=== PATIENT | female | born 1970 | race Caucasian/White ===

== ENCOUNTER 2016-06-20 20:28 | Emergency (ER) | payer MEDICAID ==
[2016-06-20 21:03] VITALS: BP 100/64; PULSE 68; RESP 16; TEMP 98.6; O2SAT 98; BMI 23.9
[2016-06-20 21:44] LABS: URINE BILIRUBIN NEGATIVE (NEGATIVE); URINE BLOOD NEGATIVE (NEGATIVE); URINE GLUCOSE (UA) NEGATIVE (NEGATIVE); URINE KETONE NEGATIVE (NEGATIVE); URINE LEUKOCYTE ESTERASE NEGATIVE Leu/uL (NEGATIVE); URINE PROTEIN NEGATIVE mg/dL (<30 mg/dL); URINE UROBILINOGEN 0.2 E.U./dL (<1 E.U./dL)
[2016-06-20 21:45] LABS: URINE APPEARANCE SL CLOUDY (CLEAR); URINE COLOR YELLOW (YELLOW)
--- NOTE | 2016-06-20 21:48 | ED PDOC ---
Arrival/HPI - General Chief Complaint: Lower Extremity Problem/Injury Time Seen by Provider: 06/20/16 20:29 Historian: Patient - History of Present Illness Narrative History of Present Illness (Text): 06/20/16 21:48 46 y.o. female whose PMHx includes colitis and SLE, on claudia, who is here in the ED with 4-5 days of L heel pain going up toward the L ankle. She is taking tylenol without relief. No fever or trauma noted. She does not believe she stepped on anything. Past Medical History - Travel History If Yes, travel location?: [facility] [place] - Infectious Disease Hx of Infectious Diseases: None - Tetanus Immunization Tetanus Immunization: Unknown - Cardiac Hx Cardiac Disorders: No - Pulmonary Hx Respiratory Disorders: No - Neurological Hx Neurological Disorder: No - HEENT Hx HEENT Disorder: No - Renal Hx Renal Disorder: No - Endocrine/Metabolic Hx Endocrine Disorders: Yes Hx Systemic Lupus Erythematosus: Yes - Hematological/Oncological Hx Blood Disorders: No - Integumentary Hx Dermatological Disorder: No - Musculoskeletal/Rheumatological Hx Musculoskeletal Disorders: No - Gastrointestinal Hx Gastrointestinal Disorders: Yes Hx Colitis: Yes - Genitourinary/Gynecological Hx Genitourinary Disorders: No - Psychiatric Hx Psychophysiologic Disorder: No Hx Substance Use: No - Surgical History Hx Cholecystectomy: Yes Hx Tubal Ligation: Yes Other/Comment: hemorrhoid repair - Suicidal Assessment Feels Threatened In Home Enviroment: No Family/Social History Family/Social History: Unknown Family HX Smoking Status: Never Smoked Hx Alcohol Use: Yes Frequency of alcohol use: Socially Hx Substance Use: No Hx Substance Use Treatment: No Allergies/Home Meds Allergies/Adverse Reactions: Allergies apple Allergy (Verified 08/23/15 21:52) ANAPHYLAXIS mcmullen Allergy (Verified 08/23/15 21:52) ANAPHYLAXIS pear Allergy (Verified 08/23/15 21:52) ANAPHYLAXIS pineapple Allergy (Verified 08/23/15 21:52) ANAPHYLAXIS tramadol Allergy (Verified 06/20/16 21:36) ANAPHYLAXIS fruits Allergy (Uncoded 08/23/15 21:52) ANAPHYLAXIS Home Medications: Home Meds Medication Instructions Recorded Confirmed Mesalamine [Apriso] 0.375 gm PO DAILY 05/23/13 08/23/15 Review of Systems - Review of Systems Constitutional: absent: Fevers Musculoskeletal: Other (L heel / ankle pain) Physical Exam Vital Signs Temp Pulse Resp BP Pulse Ox 06/20/16 21:03 98.6 F 68 16 100/64 98 Temperature: Afebrile Blood Pressure: Normal Pulse: Regular Respiratory Rate: Normal Appearance: Positive for: Well-Appearing, Non-Toxic, Comfortable Pain Distress: None Mental Status: Positive for: Alert and Oriented X 3 - Systems Exam Head: Present: Atraumatic, Normocephalic Lower Extremity: Present: Normal Inspection, NORMAL PULSES, Normal ROM, Tenderness (ttp on the bottom of the L heel), Neurovascularly Intact. No: Edema , CALF TENDERNESS, Cyanosis, Swelling, Erythema, Deformity Medical Decision Making ED Course and Treatment: 06/20/16 21:51 Patient with L heel pain going toward the L ankle with ttp at the heel with otherwise benign exam. 06/20/16 21:51 Will obtain XR. 06/20/16 21:54 XR: no fx. 06/20/16 21:59 Patient cannot take nsaids due to colitis and cannot tolerate tramadol. Given SLE, she prefers to avoid steroids - will have her use ice, shock support for plantar fasciitis, T3, and f/u podiatry. - RAD Interpretation Radiology Orders: 06/20/16 21:17 FOOT LEFT 3 VIEWS ROUTINE [RAD] Stat 06/20/16 21:18 ANKLE LEFT 3 VIEWS ROUTINE [RAD] Stat - Medication Orders Current Medication Orders: Discontinued Medications Ibuprofen (Motrin Tab) 600 mg PO STAT STA Stop: 06/20/16 21:18 Last Admin: 06/20/16 21:36 Dose: Not Given Non-Admin Reason: Patient Refused Tramadol HCl (Ultram) 50 mg PO STAT STA Stop: 06/20/16 21:18 Last Admin: 06/20/16 21:36 Dose: Not Given Non-Admin Reason: Patient Refused Disposition/Present on Arrival - Present on Arrival Any Indicators Present on Arrival: No History of DVT/PE: No History of Uncontrolled Diabetes: No Urinary Catheter: No History of Decub. Ulcer: No History Surgical Site Infection Following: None - Disposition Have Diagnosis and Disposition been Completed?: Yes Diagnosis: Left foot pain Disposition: HOME/ ROUTINE Disposition Time: 22:00 Patient Plan: Discharge Condition: GOOD Discharge Instructions (ExitCare): Plantar Fasciitis (ED) Additional Instructions: Apply ice to area of pain. Recommend plantar fasciitis support/splint. Tylenol #3 for pain and follow up with your fabrics and material cutter. Return to the emergency department if any new concerning symptoms. Prescriptions: Acetaminophen with Codeine [Tylenol with Codeine #3 Tablet] 1 tab PO Q6H PRN # 12 tablet PRN Reason: Pain, Moderate (4-7) Referrals: Mary Pearl MD [Primary Care Provider] - Follow up with primary Chelsey Farias DPM [Staff Provider] - Follow up with primary
--- NOTE | 2016-06-21 08:45 | RAD ---
PROCEDURE: Left Ankle Radiographs. HISTORY: L foot and ankle pain COMPARISON: None FINDINGS: BONES: Normal. No fracture. JOINTS: Normal. No osteoarthritis. Ankle mortise maintained. Talar dome intact SOFT TISSUES: Normal. OTHER FINDINGS: None. IMPRESSION: Normal left ankle radiographs.
--- NOTE | 2016-06-21 08:54 | RAD ---
PROCEDURE: Left Foot Radiographs. HISTORY: L foot / heel pain COMPARISON: None. FINDINGS: BONES: Normal. No fracture. JOINTS: Normal. SOFT TISSUES: Normal. OTHER FINDINGS: None. IMPRESSION: Normal left foot radiographs.
== END 2016-06-20 22:36 | disposition home or self-care (01) ==
LOC: ED 20:28
DX: M79.672 Pain in left foot (principal); M32.9 Systemic lupus erythematosus, unspecified

== ENCOUNTER 2017-01-14 20:36 | Emergency (ER) | payer MEDICAID ==
[2017-01-14 20:37] VITALS: BMI 23.9
[2017-01-14 21:03] VITALS: TEMP 98.6
[2017-01-14] MEDS ORDERED: Oxycodone/Acetaminophen 5/325 mg Tab PO STA (21:09)
--- NOTE | 2017-01-14 21:14 | ED PDOC ---
Arrival/HPI - General Chief Complaint: Abnormal Skin Integrity Time Seen by Provider: 01/14/17 20:40 - History of Present Illness Narrative History of Present Illness (Text): 01/14/17 21:14 Patient is a 46 y/o F presenting with R sided pain. Patient reports that 12 days ago she had [place] [facility] [place] reports that she saw her surgeon 3 days ago who reported that the site was healing well. He told her that she should return if she had persistent pain in 2 weeks. Patient reports that she could not wait 2 weeks and that she has had uncontrolled pain with home motrin. She denies fever, chills, chest pain, shortness of breath, discharge from site, redness around site. 01/14/17 21:21 01/14/17 21:28 Past Medical History - Infectious Disease Hx of Infectious Diseases: None - Tetanus Immunization Tetanus Immunization: Unknown - Cardiac Hx Cardiac Disorders: No - Pulmonary Hx Respiratory Disorders: No - Neurological Hx Neurological Disorder: No - HEENT Hx HEENT Disorder: No - Renal Hx Renal Disorder: No - Endocrine/Metabolic Hx Endocrine Disorders: Yes Hx Systemic Lupus Erythematosus: Yes - Hematological/Oncological Hx Blood Disorders: No - Integumentary Hx Dermatological Disorder: No - Musculoskeletal/Rheumatological Hx Arthritis: Yes - Gastrointestinal Hx Gastrointestinal Disorders: Yes Hx Colitis: Yes - Genitourinary/Gynecological Hx Genitourinary Disorders: No - Psychiatric Hx Psychophysiologic Disorder: No Hx Substance Use: No - Surgical History Hx Cholecystectomy: Yes Hx Tubal Ligation: Yes Other/Comment: hemorrhoid repair - Suicidal Assessment Feels Threatened In Home Enviroment: No Family/Social History Smoking Status: Never Smoked Hx Alcohol Use: Yes Frequency of alcohol use: Socially Hx Substance Use: No Hx Substance Use Treatment: No Allergies/Home Meds Allergies/Adverse Reactions: Allergies tramadol Allergy (Verified 01/14/17 20:42) ANAPHYLAXIS Home Medications: Home Meds Medication Instructions Recorded Confirmed Mesalamine [Apriso] 0.375 gm PO DAILY 05/23/13 01/14/17 Pantoprazole [Protonix EC Tab] 40 mg PO DAILY 01/14/17 01/14/17 Sulindac [Sulindac] 200 mg PO BID 01/14/17 01/14/17 Review of Systems - Physician Review All systems were reviewed & negative as marked: Yes - Review of Systems Constitutional: absent: Fatigue, Weight Change, Fevers Respiratory: absent: SOB, Cough, Sputum, Wheezing Cardiovascular: absent: Chest Pain, Palpitations, Edema, Calf Pain, FERRER, Orthopnea, Syncope Gastrointestinal: absent: Abdominal Pain, Constipation, Diarrhea, Nausea, Vomiting Genitourinary Female: absent: Dysuria Musculoskeletal: Arthralgias Skin: Other (surgical incision to R chest wall) Neurological: absent: Headache, Dizziness, Focal Weakness, Gait Changes, Speech Changes Physical Exam Vital Signs Temp Pulse Resp BP Pulse Ox 01/14/17 20:44 98.6 F 71 16 113/68 99 Temperature: Afebrile Blood Pressure: Normal Pulse: Regular Respiratory Rate: Normal Appearance: Positive for: Well-Appearing, Non-Toxic, Comfortable Pain Distress: None Mental Status: Positive for: Alert and Oriented X 3 - Systems Exam Head: Present: Atraumatic, Normocephalic Pupils: Present: PERRL Extroacular Muscles: Present: EOMI Conjunctiva: Present: Normal Mouth: Present: Moist Mucous Membranes Neck: Present: Normal Range of Motion Respiratory/Chest: Present: Clear to Auscultation, Good Air Exchange. No: Respiratory Distress, Accessory Muscle Use Cardiovascular: Present: Regular Rate and Rhythm, Normal S1, S2, Other ( surgical incision to R chest wall. Scant swelling. No surrounding erythema or discharge.). No: Murmurs Abdomen: No: Tenderness, Distention Upper Extremity: Present: Normal Inspection Lower Extremity: Present: Normal Inspection Medical Decision Making ED Course and Treatment: 01/14/17 21:27 Patient is afebrile and well appearing. She has had no change in symptoms since seeing surgeon 3 days ago. Will give percocet and get xray. Will discharge home with antibiotics and follow-up with surgeon. 01/14/17 22:05 Xray negative. Will dc with percocet x 5 tabs and keflex. - RAD Interpretation Radiology Orders: 01/14/17 21:10 RIBS RIGHT & PA CHEST [RAD] Stat - Medication Orders Current Medication Orders: Discontinued Medications Cephalexin Monohydrate (Keflex) 500 mg PO STAT STA PRN Reason: Protocol Stop: 01/14/17 21:10 Oxycodone/Acetaminophen (Percocet 5/325 Mg Tab) 1 tab PO STAT STA Stop: 01/14/17 21:10 Disposition/Present on Arrival - Present on Arrival Any Indicators Present on Arrival: No History of DVT/PE: No History of Uncontrolled Diabetes: No Urinary Catheter: No History of Decub. Ulcer: No History Surgical Site Infection Following: None - Disposition Have Diagnosis and Disposition been Completed?: Yes Diagnosis: Pain at surgical incision Disposition: HOME/ ROUTINE Disposition Time: 22:08 Patient Plan: Discharge Patient Problems: Current Active Problems Problem Status Onset Pain at surgical incision Acute Condition: GOOD Additional Instructions: Follow-up with your surgeon within 2 days. Return to ED if condition worsens. Take antibiotics until evaluated by your surgeon. Take percocet for severe pain. Prescriptions: Cephalexin [cephalexin] 500 mg PO QID #40 cap oxyCODONE/Acetaminophen [Percocet 5/325 mg Tab] 1 ea PO Q6 PRN #5 tab PRN Reason: Pain, Severe (8-10) Referrals: Joe Marina DO [Primary Care Provider] - Follow up with primary Forms: [employer] (Green[place]ic)
[2017-01-14 23:33] VITALS: BP 111/68; PULSE 70; RESP 18; O2SAT 100
--- NOTE | 2017-01-15 09:12 | RAD ---
PROCEDURE: Radiographs of the Chest and Right Ribs. HISTORY: s/p lipoma removal COMPARISON: Chest x-ray 08/23/2015 TECHNIQUE: Frontal radiograph of the chest and multiple oblique radiographs of the right ribs were obtained. FINDINGS: RIGHT RIBS: No fracture or focal lesion visualized. LUNGS: Clear. PLEURA: No pneumothorax or pleural fluid. CARDIOVASCULAR: Normal sized heart. No pulmonary vascular congestion. OTHER FINDINGS: None. IMPRESSION: Unremarkable radiographs of the chest and right ribs. No right rib fracture.
== END 2017-01-14 22:25 | disposition home or self-care (01) ==
LOC: ED 20:36
DX: G89.18 Other acute postprocedural pain (principal); M32.9 Systemic lupus erythematosus, unspecified; Z98.51 Tubal ligation status